=== PATIENT | female | born 1945 | race Caucasian/White ===

== ENCOUNTER 2022-05-25 22:19 | Emergency (ER) | payer BC, MEDICAID ==
[~2022-05-25] VITALS: Ht 152.4 cm; Wt 68.0 kg
[2022-05-25 22:47] VITALS: BP_SYST 163
[2022-05-25] MEDS ORDERED: LOSA50TA3 PO (22:53)
--- NOTE | 2022-05-25 22:53 | NUR ---
Patient triaged and placed in waiting room. VS checked and patient appears in no acute distress at this time. Accompanied by friend, awaiting available bed, and MD notified of need for MSE.
--- NOTE | 2022-05-25 23:00 | NUR ---
DR. JARAMILLO EXAMINING PATIENT IN TRIAGE ROOM
[2022-05-26 00:52] LABS: BILIRUBIN,URINE NEGATIVE (NEGATIVE); BLOOD, URINE NEGATIVE (NEGATIVE); CLARITY/URINE CLEAR (CLEAR); COLOR,URINE YELLOW (YELLOW); GLUCOSE,URINE NEGATIVE (NEGATIVE); KETONES,URINE NEGATIVE (NEGATIVE); LEUKOCYTE ESTERASE ,URINE NEGATIVE (NEGATIVE); NITRITE, URINE NEGATIVE (NEGATIVE); PROTEIN URINE NEGATIVE (NEGATIVE); UROBILINOGEN,URINE 0.2 (0.2-1.0)
[2022-05-26 00:56] LABS: BASOPHILS % (AUTO) 0.4 % (0.0-2.0); EOSINOPHILS # (AUTO) 0.1 K/uL (0.0-0.4); EOSINOPHILS % (AUTO) 0.9 % (0.0-4.0); HEMATOCRIT 41.6 % (36-48); HEMOGLOBIN 13.7 g/dL (12.0-16.0); LYMPHOCYTES # (AUTO) 1.8 K/uL (1.0-5.5); LYMPHOCYTES % (AUTO) 26.8 % (20.5-51.5); MEAN CORPUSCULAR HEMOGLOBIN 30 pg (27-31); MEAN CORPUSCULAR HGB CONC 33 % (32-36); MEAN CORPUSCULAR VOLUME 92 fL (79.0-98.0); MONOCYTES # (AUTO) 0.5 K/uL (0.0-1.0); MONOCYTES % (AUTO) 7.1 % (1.7-9.3); NEUTROPHILS # (AUTO) 4.3 K/uL (1.8-7.7); NEUTROPHILS % (AUTO) 64.8 % (40.0-70.0); PLATELET COUNT (AUTO) 178 K/uL (130-430); RED BLOOD CELL COUNT(AUTO) 4.52 MIL/uL (4.2-6.2); RED CELL DISTRIBUTION WIDTH 14.2 % (9.0-15.0); WHITE BLOOD COUNT (AUTO) 6.6 K/uL (4.8-10.8)
[2022-05-26 01:14] LABS: ANION GAP 6 (5-15); CALCIUM 9.6 mg/dL (8.4-11.0); CHLORIDE 103 mmol/L (98-107); CREATININE 0.77 mg/dL (0.55-1.30); GLUCOSE 101 mg/dL (70-99); UREA NITROGEN, BLOOD 18 mg/dL (8-21)
[2022-05-26 01:30] LABS: ALANINE AMINOTRANSFERASE 24 U/L (12-78); ALBUMIN 3.9 g/dL (3.4-4.8); ASPARTATE AMINOTRANSFERASE 24 U/L (10-37); TOTAL BILIRUBIN 0.5 mg/dL (0.0-1.0)
[2022-05-26 02:40] VITALS: BP_SYST 152
--- NOTE | 2022-05-26 02:40 | NUR ---
Patient given written and verbal discharge instructions and verbalizes understanding. ER MD discussed with patient the results and treatment provided. Patient in stable condition. ID arm band removed. Patient educated on pain management and to follow up with PMD. Pain Scale 0/10 Opportunity for questions provided and answered.
== END 2022-05-26 02:40 | disposition home or self-care (01) ==
LOC: SED 22:19
DX: I10 Essential (primary) hypertension (principal); R51.9 Headache, unspecified; Z79.899 Other long term (current) drug therapy
CPT/HCPCS: 36415; 80053; 81003; 85025; 99283

== ENCOUNTER 2023-04-25 05:45 | Day surgery (SDC) | payer BC, MEDICAID ==
[~2023-04-25] VITALS: Ht 154.9 cm; Wt 72.6 kg
[~2023-04-25 05:45] MED LIST: LOSA-413 PO
[2023-04-25] MEDS ORDERED: CEFAZOLIN SOD 2 GM in D5W 50 ML IV ONE (07:00)
[2023-04-25] MEDS ORDERED: fentaNYL CITRATE/PF 100 MCG/2 ML AMP ONE (07:38)
[2023-04-25] MEDS ORDERED: ACETAMINOPHEN I.V. 1000 MG 100 ML IV ONE (07:39)
[2023-04-25] MEDS ORDERED: ePHEDrine sulfate 50 MG/ML VIAL ONE (07:49)
[2023-04-25] MEDS ORDERED: ROCURONIUM BROMIDE 10 MG/ML (ZEMURON) ONE (07:49)
[2023-04-25] MEDS ORDERED: BUPIVACAINE /PF 0.25% 30 ML VIAL INJ ONE (07:49)
[2023-04-25] MEDS ORDERED: ONDANSETRON HCL 4 MG/2 ML VIAL ONE (07:49)
[2023-04-25] MEDS ORDERED: DESFLURANE 15 MIN GAS INH ONE (07:49)
[2023-04-25] MEDS ORDERED: DEXAMETHASONE SOD PHOSPHATE 4 MG/ML VIAL ONE (07:49)
[2023-04-25] MEDS ORDERED: NS 1000 ML IV.SOLN IV ONE (07:49)
[2023-04-25] MEDS ORDERED: KETOROLAC TROMETHAMINE 30 MG VIAL ONE (07:49)
[2023-04-25] MEDS ORDERED: PROPOFOL 200MG/ 20ML VIAL (DIPRIVAN) IV ONE (07:49)
[2023-04-25] MEDS ORDERED: SUGAMMADEX SODIUM 200 MG/2 ML VIAL IV ONE (07:49)
[2023-04-25] MEDS ORDERED: LR 1,000 ML IV.SOLN IV ONE (07:49)
[2023-04-25 07:51] VITALS: O2SAT 97
[2023-04-25] MEDS ORDERED: HYDROmorphone 1 MG/ML INJ. CARTRIDGE IVP PRN ×2 (08:30)
[2023-04-25] MEDS ORDERED: LR 1,000 ML IV ONE (08:30)
[2023-04-25] MEDS ORDERED: ONDANSETRON HCL 4 MG/2 ML VIAL IVP PRN (08:30)
[2023-04-25] MEDS ORDERED: fentaNYL CITRATE/PF 100 MCG/2 ML AMP IVP PRN (08:30)
[2023-04-25] MEDS ORDERED: D5/0.45 NS 1,000 ML IV SCH (09:15)
[2023-04-25] MEDS ORDERED: HYDROcodone/ACETAMIN 5-325 MG TAB (NORCO/ VICODIN) PO PRN (09:15)
[2023-04-25] MEDS ORDERED: HYDROmorphone 1 MG/ML INJ. CARTRIDGE ONE (10:05)
[2023-04-25 12:32] VITALS: BP_SYST 143; PULSE 84; RESP 20
== END 2023-04-25 12:15 | disposition home or self-care (01) ==
LOC: SMU 05:45 → SDS 05:45
PROVIDERS: ATTEND Colon & Rectal Surgery
DX: K80.10 Calculus of gallbladder with chronic cholecystitis without obstruction (principal); I10 Essential (primary) hypertension; E78.5 Hyperlipidemia, unspecified; M19.90 Unspecified osteoarthritis, unspecified site; Z82.3 Family history of stroke; Z79.899 Other long term (current) drug therapy
CPT/HCPCS: 87081; 47563; 74300; 88304; J3490 ×2; J0690; J1100; J1885; J2405; J2704; J3010; J1170; Q9967; J7060; J7120; J7030; C1758; C1727; J0131; 76000

== ENCOUNTER 2023-11-28 13:26 | Emergency (ER) | payer BC, MEDICAID ==
[~2023-11-28] VITALS: Ht 152.4 cm; Wt 72.6 kg
[2023-11-28 13:37] VITALS: BP_SYST 153; PULSE 76; RESP 16; TEMP 98; O2SAT 98
[2023-11-28 14:19] LABS: BASOPHILS % (AUTO) 0.3 % (0.0-2.0); EOSINOPHILS # (AUTO) 0.1 K/uL (0.0-0.4); EOSINOPHILS % (AUTO) 1.1 % (0.0-4.0); HEMATOCRIT 39.4 % (36-48); HEMOGLOBIN 13.2 g/dL (12.0-16.0); LYMPHOCYTES # (AUTO) 1.7 K/uL (1.0-5.5); LYMPHOCYTES % (AUTO) 24.8 % (20.5-51.5); MEAN CORPUSCULAR HEMOGLOBIN 30 pg (27-31); MEAN CORPUSCULAR HGB CONC 34 % (32-36); MEAN CORPUSCULAR VOLUME 90 fL (79.0-98.0); MONOCYTES # (AUTO) 0.6 K/uL (0.0-1.0); MONOCYTES % (AUTO) 8.8 % (1.7-9.3); NEUTROPHILS # (AUTO) 4.5 K/uL (1.8-7.7); PLATELET COUNT (AUTO) 159 K/uL (130-430); RED CELL DISTRIBUTION WIDTH 14.5 % (9.0-15.0); WHITE BLOOD COUNT (AUTO) 6.9 K/uL (4.8-10.8)
[2023-11-28 14:32] LABS: PROTHROMBIN TIME 10.6 SECS (9.5-12.5)
[2023-11-28 14:33] LABS: ALANINE AMINOTRANSFERASE 23 U/L (12-78); ALBUMIN 3.1 g/dL (3.4-4.8); ANION GAP 1 (5-15); ASPARTATE AMINOTRANSFERASE 19 U/L (10-37); CALCIUM 8.6 mg/dL (8.4-11.0); CARBON DIOXIDE 31 mmol/L (23-29); CHLORIDE 104 mmol/L (98-107); GLUCOSE 88 mg/dL (74-106); SODIUM SERUM 136 mmol/L (136-145); TOTAL BILIRUBIN 0.4 mg/dL (0.0-1.0); TOTAL PROTEIN, SERUM 7.6 g/dL (6.4-8.3); UREA NITROGEN, BLOOD 18 mg/dL (8-21)
[2023-11-28 14:43] LABS: AMYLASE 73 U/L (0-100); BILIRUBIN,DIRECT 0.1 mg/dL (0.0-0.3); LACTATE DEHYDROGENASE 170 U/L (81-234); LIPASE 39 U/L (16-77)
[2023-11-28 15:00] LABS: BILIRUBIN,URINE NEGATIVE (NEGATIVE); BLOOD, URINE NEGATIVE (NEGATIVE); CLARITY/URINE CLEAR (CLEAR); COLOR,URINE YELLOW (YELLOW); GLUCOSE,URINE NEGATIVE (NEGATIVE); KETONES,URINE NEGATIVE (NEGATIVE); LEUKOCYTE ESTERASE ,URINE NEGATIVE (NEGATIVE); NITRITE, URINE NEGATIVE (NEGATIVE); PROTEIN URINE NEGATIVE (NEGATIVE); UROBILINOGEN,URINE 0.2 (0.2-1.0)
[2023-11-28] MEDS ORDERED: CEPH250C PO (16:19)
[2023-11-28 16:34] VITALS: BP_SYST 153; PULSE 76; RESP 16; TEMP 98; O2SAT 98
== END 2023-11-28 16:34 | disposition home or self-care (01) ==
LOC: SED 13:26
DX: N30.90 Cystitis, unspecified without hematuria (principal); R10.31 Right lower quadrant pain; D21.9 Benign neoplasm of connective and other soft tissue, unspecified; M25.551 Pain in right hip; I10 Essential (primary) hypertension; Z79.2 Long term (current) use of antibiotics; Z79.899 Other long term (current) drug therapy
CPT/HCPCS: 36415; 80048; 80076; 81001; 81003; 82150; 83605; 83615; 83690; 84484; 85025; 85610; 85730; 99284